=== PATIENT | female | born 1980 | race Caucasian/White ===

== ENCOUNTER 2017-09-21 16:03 | Emergency (ER) | payer OTHER ==
[~2017-09-21] VITALS: Ht 152.4 cm; Wt 66.8 kg
[~2017-09-21 16:03] MED LIST: IBUP-1222 PO; OXYC-302 PO; PREN1TAB60 PO
[2017-09-21] MEDS ORDERED: CYCL5TAB PO ×2 (16:17→16:39)
[2017-09-21] MEDS ORDERED: MECL-76 PO (16:39)
[2017-09-21 16:49] LABS: HEMATOCRIT 41.3 % (34.6-47.8); HEMOGLOBIN 13.9 g/dL (11.7-16.4); WHITE BLOOD COUNT 5.3 x10^3/uL (3.4-10)
[2017-09-21] MEDS ORDERED: KETOROLAC 30 MG/1 ML ONE (16:55)
[2017-09-21] MEDS ORDERED: DIPHENHYDRAMINE 50 MG/ML, 1ML ONE (16:55)
[2017-09-21 16:59] LABS: BLOOD UREA NITROGEN 13 mg/dL (7-18)
[2017-09-21] MEDS ORDERED: DIAZEPAM 5 MG TABLET ONE (17:00)
[2017-09-21] MEDS ORDERED: SODIUM CHLORIDE 0.9% 1,000ML IVBOLUS ONE (17:00)
[2017-09-21] MEDS ORDERED: KETOROLAC 30 MG/1 ML IVPush ONE (17:00)
[2017-09-21] MEDS ORDERED: DIPHENHYDRAMINE 50 MG/ML, 1ML IVPush ONE (17:00)
[2017-09-21] MEDS ORDERED: DIAZEPAM 5 MG/ML, 2ML IVPush ONE (17:00)
[2017-09-21] MEDS ORDERED: LORazepam 2 MG/ML, 1ML ONE (17:00)
[2017-09-21] MEDS ORDERED: SODIUM CHLORIDE FLUSH 10ML SYR IVF ONE (17:00)
[2017-09-21 17:59] VITALS: BP 147/86
[2017-09-21] MEDS ORDERED: DIAZEPAM 5 MG TABLET PO ONE (18:00)
[2017-09-21] MEDS ORDERED: LORazepam 2 MG/ML, 1ML IVPush ONE (18:00)
== END 2017-09-21 18:02 | disposition home or self-care (01) ==
LOC: ED 16:48
DX: G44.219 Episodic tension-type headache, not intractable (principal); F41.1 Generalized anxiety disorder
CPT/HCPCS: 36415; 72050; 80048; 82040; 85025; 96374; 96375; 99285; J1200; J1885; J2060; J7030